=== PATIENT | male | born 1945 | race Caucasian/White ===

== ENCOUNTER → 2020-05-19 | Outpatient (CLI) | payer MEDICARE ==
[~2020-05-19] MED LIST: ACYCLOVIR400 MG PO; AMBIEN CR12.5 MG PO; BUMETANIDE1 MG PO; ELIQUIS5 MG PO; ENALAPRIL MALEA20 MG PO; FLOMAX 0.4 MG0.4 MG PO; HYDRALAZINE HCL25 MG PO; HYDROCHLOROTHIA25 MG PO; HYDROCODON-ACE1 EAC6 PO; LANTUS100 UNIT/1 SQ; LASIX 40 MG TAB40 MG PO; LEVOFLOXACIN500 MG PO; LOPRESSOR 25 MG25 MG PO; LYRICA150 MG PO; OXYCODONE HCL10 MG PO; POSACONAZOLE100 MG PO; PRAZOSIN HCL2 MG PO; PROCARDIA XL90 MG PO; PROTONIX40 MG PO; ZOLPIDEM TART12.5 MG PO
== END ==
LOC: KOH-I 14:04
DX: M25.571 Pain in right ankle and joints of right foot (principal); M25.572 Pain in left ankle and joints of left foot; M79.671 Pain in right foot; M79.672 Pain in left foot; M79.89 Other specified soft tissue disorders; M19.072 Primary osteoarthritis, left ankle and foot; M19.071 Primary osteoarthritis, right ankle and foot
CPT/HCPCS: 73610; 73630

== ENCOUNTER → 2020-05-27 | Outpatient (CLI) | payer MEDICARE | LOC: KOH-I 08:45 | DX: M25.572 Pain in left ankle and joints of left foot (principal); G89.29 Other chronic pain; M79.89 Other specified soft tissue disorders | CPT/HCPCS: 73721 ==

== ENCOUNTER → 2020-08-05 | Outpatient (CLI) | payer MEDICARE, OTHER ==
[2020-08-05 11:37] LABS: HEMOGLOBIN 13.5 gm/dl (14.0-17.5); RED BLOOD COUNT 4.96 M/UL (4.20-5.50); WHITE BLOOD COUNT 2.5 K/UL (4.5-11.0)
[2020-08-05 11:58] LABS: BUN/CREATININE RATIO 15 (0-10)
== END ==
LOC: OPSV2 10:00 → EDSTATUS 10:00 → OPSV2 10:16
PROVIDERS: Orthopaedic Surgery
DX: M43.16 Spondylolisthesis, lumbar region (principal); M54.16 Radiculopathy, lumbar region
CPT/HCPCS: 36415; 71046; 80048; 81001; 83036; 85027; 85610; 85730; 87081; 87086; 93005

== ENCOUNTER 2020-10-29 06:26 | Inpatient (IN) | payer MEDICARE ==
[~2020-10-29] VITALS: Ht 180.3 cm; Wt 98.4 kg
[~2020-10-29 06:26] MED LIST changes: -ACYCLOVIR400 MG PO; -AMBIEN CR12.5 MG PO; -LASIX 40 MG TAB40 MG PO; -LEVOFLOXACIN500 MG PO; -LYRICA150 MG PO; -OXYCODONE HCL10 MG PO; -POSACONAZOLE100 MG PO; -PRAZOSIN HCL2 MG PO; -PROTONIX40 MG PO; -ZOLPIDEM TART12.5 MG PO
[2020-10-29] MEDS ORDERED: LYRICA150 MG PO (11:46)
[2020-10-29] MEDS ORDERED: ZOLPIDEM TART12.5 MG PO (11:46)
[2020-10-29] MEDS ORDERED: ACYCLOVIR400 MG PO (12:15)
[2020-10-29] MEDS ORDERED: LASIX 40 MG TAB40 MG PO (12:16)
[2020-10-29] MEDS ORDERED: PROTONIX40 MG PO (12:18)
[2020-10-29] MEDS ORDERED: POSACONAZOLE100 MG PO (12:19)
[2020-10-29] MEDS ORDERED: PRAZOSIN HCL2 MG PO (12:20)
[2020-10-29] MEDS ORDERED: LEVOFLOXACIN500 MG PO (12:23)
[2020-10-29] MEDS ORDERED: OXYCODONE HCL10 MG PO (12:24)
[2020-10-29 14:01] LABS: RED BLOOD COUNT 2.03 M/UL (4.20-5.50)
[2020-10-29 14:15] LABS: BUN/CREATININE RATIO 16 (0-10)
[2020-10-29 14:23] LABS: HEMOGLOBIN 6.2 gm/dl (14.0-17.5); WHITE BLOOD COUNT 0.4 K/UL (4.5-11.0)
[2020-10-29] MEDS ORDERED: AMBIEN CR12.5 MG PO (19:23)
[2020-10-30 05:18] LABS: RED BLOOD COUNT 1.99 M/UL (4.20-5.50)
[2020-10-30 05:21] LABS: WHITE BLOOD COUNT 0.4 K/UL (4.5-11.0)
[2020-10-30 18:27] LABS: HEMOGLOBIN 6.8 gm/dl (14.0-17.5)
[2020-10-31 03:04] LABS: RED BLOOD COUNT 2.17 M/UL (4.20-5.50)
[2020-10-31 03:21] LABS: HEMOGLOBIN 6.4 gm/dl (14.0-17.5); WHITE BLOOD COUNT 0.4 K/UL (4.5-11.0)
[2020-10-31 20:10] LABS: HEMOGLOBIN 8.2 gm/dl (14.0-17.5)
[2020-11-01 03:53] LABS: RED BLOOD COUNT 2.35 M/UL (4.20-5.50)
[2020-11-01 04:10] LABS: WHITE BLOOD COUNT 0.4 K/UL (4.5-11.0)
[2020-11-01 06:44] LABS: CREATININE, URINE 43.3 mg/dL (Not Estab.); MICROALB/CREAT RATIO <7 (0-29)
[2020-11-01 14:37] LABS: ACINETOBACTER BAUMANNII Not Detected (Negative); ENTEROCOCCUS Not Detected (Negative); ESCHERICHIA COLI Not Detected (Negative); KLEBSIELLA OXYTOCA Not Detected (Negative); KLEBSIELLA PNEUMONIAE Not Detected (Negative); KPC-CARBAPENEM-RESISTANCE GENE Not Detected (Negative); PROTEUS Not Detected (Negative); SERRATIA MARCESANS Not Detected (Negative); STAPHYLOCOCCUS AUREUS Not Detected (Negative); STREP AGALACTIAE (GROUP B) Not Detected (Negative); STREP PYOGENES (GROUP A) Not Detected (Negative); STREPTOCOCCUS Not Detected (Negative); vanA/B (VANCOMYCIN RESIST GENE Not Detected (Negative)
[2020-11-01 14:38] LABS: CANDIDA ALBICANS Not Detected (Negative); CANDIDA KRUSEI Not Detected (Negative); CANDIDA TROPICALIS Not Detected (Negative); HAEMOPHILUS INFLUENZAE Not Detected (Negative); PSEUDOMONAS AERUGINOSA Not Detected (Negative)
[2020-11-01 17:04] LABS: STAPHYLOCOCCUS DETECTED (Negative); mecA (METHICILLIN RESIST GENE DETECTED (Negative)
[2020-11-01 20:15] LABS: HEMOGLOBIN 8.1 gm/dl (14.0-17.5)
[2020-11-02 04:57] LABS: HEMOGLOBIN 7.5 gm/dl (14.0-17.5); RED BLOOD COUNT 2.51 M/UL (4.20-5.50)
[2020-11-02 05:14] LABS: BUN/CREATININE RATIO 17 (0-10)
[2020-11-02 05:16] LABS: WHITE BLOOD COUNT 0.4 K/UL (4.5-11.0)
[2020-11-03 04:30] LABS: HEMOGLOBIN 9.8 gm/dl (14.0-17.5); RED BLOOD COUNT 3.19 M/UL (4.20-5.50); WHITE BLOOD COUNT 0.4 K/UL (4.5-11.0)
[2020-11-03 04:43] LABS: BUN/CREATININE RATIO 18 (0-10)
[2020-11-03] MEDS ORDERED: BUMETANIDE1 MG PO (16:45)
[2020-11-03] MEDS ORDERED: FLOMAX 0.4 MG0.4 MG PO (17:00)
== END 2020-11-03 20:00 | disposition home or self-care (01) | DRG 834 ==
LOC: PROG CARE 10:21
PROVIDERS: Physician Assistant Medical; ADMIT Internal Medicine
DX: C92.00 Acute myeloblastic leukemia, not having achieved remission (principal); I50.33 Acute on chronic diastolic (congestive) heart failure; A41.9 Sepsis, unspecified organism; J96.01 Acute respiratory failure with hypoxia; D61.811 Other drug-induced pancytopenia; N17.9 Acute kidney failure, unspecified; D61.818 Other pancytopenia; I13.0 Hypertensive heart and chronic kidney disease with heart failure and stage 1 through stage 4 chronic kidney disease, or unspecified chronic kidney disease; R60.1 Generalized edema; I48.91 Unspecified atrial fibrillation; D46.9 Myelodysplastic syndrome, unspecified; D69.6 Thrombocytopenia, unspecified; E87.6 Hypokalemia; Z20.822 Contact with and (suspected) exposure to COVID-19; G89.29 Other chronic pain; I35.0 Nonrheumatic aortic (valve) stenosis; N40.0 Benign prostatic hyperplasia without lower urinary tract symptoms; E78.5 Hyperlipidemia, unspecified; K21.9 Gastro-esophageal reflux disease without esophagitis; E87.70 Fluid overload, unspecified; N18.9 Chronic kidney disease, unspecified; D64.89 Other specified anemias; E11.40 Type 2 diabetes mellitus with diabetic neuropathy, unspecified; Z79.01 Long term (current) use of anticoagulants; Z79.4 Long term (current) use of insulin
CPT/HCPCS: ECHO; 36415; 36430; 36600; 71045; 71046; 71250; 80048; 80053; 80202; 81001; 82043; 82533; 82570; 82803; 82962; 83735; 83880; 84100; 84156; 84439; 84443; 85014; 85018; 85025; 85027; 85610; 86850; 86900; 86901; 86920; 87040; 87077; 87086; 87150; 87186; 93005; 93270; 93306; 93970; 94640; 94664; 94760; J1170; J1205; J1650; J2185; J2270; J3370; J7040; J7070; P9040; P9047; Q9967

== ENCOUNTER → 2021-01-11 | Outpatient (CLI) | payer MEDICARE ==
[~2021-01-11] MED LIST changes: +ACYCLOVIR400 MG PO; +AMBIEN CR12.5 MG PO; +LASIX 40 MG TAB40 MG PO; +LEVOFLOXACIN500 MG PO; +LYRICA150 MG PO; +OXYCODONE HCL10 MG PO; +POSACONAZOLE100 MG PO; +PRAZOSIN HCL2 MG PO; +PROTONIX40 MG PO; +ZOLPIDEM TART12.5 MG PO
== END ==
LOC: LAB 14:34
DX: Z51.81 Encounter for therapeutic drug level monitoring (principal); D72.819 Decreased white blood cell count, unspecified; D50.0 Iron deficiency anemia secondary to blood loss (chronic); Z79.01 Long term (current) use of anticoagulants
CPT/HCPCS: 36415; 85130

== ENCOUNTER 2021-04-19 13:49 | Inpatient (IN) | payer MEDICARE ==
[~2021-04-19] VITALS: Ht 180.3 cm; Wt 104.3 kg
[~2021-04-19 13:49] MED LIST changes: -ENALAPRIL MALEA20 MG PO; -LANTUS100 UNIT/1 SQ; -LYRICA150 MG PO; -PROCARDIA XL90 MG PO; +SILVADENE CREAM20 GM TOP
[2021-04-19 17:35] LABS: RED BLOOD COUNT 2.2 M/UL (4.20-5.50); WHITE BLOOD COUNT 2.1 K/UL (4.5-11.0)
[2021-04-19 17:44] LABS: HEMOGLOBIN 6.9 gm/dl (14.0-17.5)
[2021-04-19 18:01] LABS: BUN/CREATININE RATIO 23 (0-10)
[2021-04-20 04:09] LABS: RED BLOOD COUNT 2.13 M/UL (4.20-5.50)
[2021-04-20 04:32] LABS: HEMOGLOBIN 6.7 gm/dl (14.0-17.5); WHITE BLOOD COUNT 1.5 K/UL (4.5-11.0)
[2021-04-20 04:54] LABS: BUN/CREATININE RATIO 22 (0-10)
[2021-04-20] MEDS ORDERED: LYRICA150 MG PO (11:46)
[2021-04-20] MEDS ORDERED: ENALAPRIL MALEA20 MG PO (11:47)
[2021-04-20] MEDS ORDERED: PROCARDIA XL90 MG PO (11:47)
[2021-04-20] MEDS ORDERED: LANTUS100 UNIT/1 SQ (11:47)
[2021-04-20] MEDS ORDERED: PROVENTIL HFA6.7 GM INH (12:48)
[2021-04-20] MEDS ORDERED: VOLTREN XR 100100 MG PO (12:53)
[2021-04-20] MEDS ORDERED: VENCLEXTA PO (12:55)
[2021-04-20] MEDS ORDERED: FLUCONAZOLE200 MG PO (12:58)
[2021-04-20] MEDS ORDERED: BUMETANIDE1 MG PO (13:03)
[2021-04-20] MEDS ORDERED: NARCAN4 MG (13:09)
[2021-04-20] MEDS ORDERED: FLOMAX 0.4 MG0.4 MG PO (13:12)
[2021-04-20] MEDS ORDERED: VITAMIN D325 MCG PO (13:19)
[2021-04-20] MEDS ORDERED: HEPARIN FL 100 UNIT IV (13:23)
[2021-04-20] MEDS ORDERED: POTASSIUM CHLO10 ME1 PO (13:25)
[2021-04-20] MEDS ORDERED: DOCUSATE SODIU1 EAC1 PO (13:29)
[2021-04-20] MEDS ORDERED: CHOCOLATED LAXA15 MG PO (13:31)
[2021-04-21 04:26] LABS: RED BLOOD COUNT 2.07 M/UL (4.20-5.50)
[2021-04-21 05:11] LABS: WHITE BLOOD COUNT 1.4 K/UL (4.5-11.0)
[2021-04-21 05:12] LABS: HEMOGLOBIN 6.5 gm/dl (14.0-17.5)
[2021-04-21 05:16] LABS: BUN/CREATININE RATIO 19 (0-10)
[2021-04-22 04:07] LABS: HEMOGLOBIN 7.8 gm/dl (14.0-17.5)
[2021-04-22 04:11] LABS: RED BLOOD COUNT 2.48 M/UL (4.20-5.50); WHITE BLOOD COUNT 1.2 K/UL (4.5-11.0)
[2021-04-22 04:34] LABS: BUN/CREATININE RATIO 15 (0-10)
[2021-04-22 10:41] LABS: HEMOGLOBIN 8.9 gm/dl (14.0-17.5)
[2021-04-22 10:45] LABS: RED BLOOD COUNT 2.82 M/UL (4.20-5.50); WHITE BLOOD COUNT 1.8 K/UL (4.5-11.0)
--- NOTE | 2021-04-22 10:57 | NUR ---
PROVIDER MADE AWARE OF THROMBOCYTOPENIA AT THIS TIME. NO NEW ORDERS GIVE.
[2021-04-23 03:21] LABS: BUN/CREATININE RATIO 16 (0-10)
[2021-04-24 03:09] LABS: HEMOGLOBIN 7.8 gm/dl (14.0-17.5)
[2021-04-24 03:24] LABS: RED BLOOD COUNT 2.44 M/UL (4.20-5.50); WHITE BLOOD COUNT 1.3 K/UL (4.5-11.0)
[2021-04-24 03:58] LABS: BUN/CREATININE RATIO 16 (0-10)
[2021-04-25] MEDS ORDERED: SULFAMETHOXAZO1 EACH PO (13:11)
[2021-04-25] MEDS ORDERED: LANTUS100 UNIT/1 SQ (13:13)
== END 2021-04-25 17:35 | disposition home or self-care (01) | DRG 834 ==
LOC: ER1 13:49 → MED SURG 4 18:35 → CDU 18:35 → MED SURG 4 04-20 20:29
PROVIDERS: Internal Medicine; Physician Assistant; ADMIT Internal Medicine Infectious Disease
PROC: 30233N1 Transfusion of Nonautologous Red Blood Cells into Peripheral Vein, Percutaneous Approach (ICD-10-PCS; principal; 2021-04-21)
DX: C92.00 Acute myeloblastic leukemia, not having achieved remission (principal); I50.33 Acute on chronic diastolic (congestive) heart failure; D61.818 Other pancytopenia; I48.20 Chronic atrial fibrillation, unspecified; N17.9 Acute kidney failure, unspecified; D46.9 Myelodysplastic syndrome, unspecified; Z20.822 Contact with and (suspected) exposure to COVID-19; I11.0 Hypertensive heart disease with heart failure; I35.0 Nonrheumatic aortic (valve) stenosis; N40.0 Benign prostatic hyperplasia without lower urinary tract symptoms; M54.9 Dorsalgia, unspecified; F43.10 Post-traumatic stress disorder, unspecified; F32.A Depression, unspecified; K21.9 Gastro-esophageal reflux disease without esophagitis; I87.2 Venous insufficiency (chronic) (peripheral); G89.29 Other chronic pain; I50.9 Heart failure, unspecified; E87.6 Hypokalemia; D63.0 Anemia in neoplastic disease; E11.43 Type 2 diabetes mellitus with diabetic autonomic (poly)neuropathy; Z98.890 Other specified postprocedural states; Z79.899 Other long term (current) drug therapy; Z92.21 Personal history of antineoplastic chemotherapy
CPT/HCPCS: ECHO; 36415; 36600; 71045; 80048; 80053; 82550; 82553; 82803; 82962; 83036; 83735; 83874; 83880; 84443; 84484; 85025; 85027; 85610; 86850; 86900; 86901; 86920; 93306; 94664; 94760; 97110; 97110-GP-CQ; 97116-GP-CQ; 97161; 99285; J2270; P9040; P9047; Q9967; U0002